=== PATIENT | male | born 1995 | race Caucasian/White ===

== ENCOUNTER 2020-09-11 15:13 | Emergency (ER) | payer OTHER ==
[~2020-09-11 15:13] MED LIST: AUGMENTIN 875-1 EACH PO; COUMADIN 10MG T10 MG PO; ELIQUIS 5 MG TAB5 MG PO; ELIQUIS2.5 MG PO; ENOXAPARIN100 MG/1 M SC; KEFLEX CAP 500500 MG PO; LORTAB 7.5-3251 EACH PO; PROVENTIL HFA6.7 GM INH; XARELTO20 MG PO; ZITHROMAX250 MG PO
[2020-09-11 17:23] LABS: HEMOGLOBIN 15.8 gm/dl (14.0-17.5); RED BLOOD COUNT 5.44 M/UL (4.20-5.50); WHITE BLOOD COUNT 9.6 K/UL (4.5-11.0)
[2020-09-11 17:54] LABS: BUN/CREATININE RATIO 15 (0-10)
== END 2020-09-11 18:25 | disposition home or self-care (01) ==
LOC: ER1 15:13
PROVIDERS: Physician Assistant
DX: R07.89 Other chest pain (principal); R53.83 Other fatigue; Z86.711 Personal history of pulmonary embolism; Z86.718 Personal history of other venous thrombosis and embolism; Z79.01 Long term (current) use of anticoagulants; Z20.822 Contact with and (suspected) exposure to COVID-19
CPT/HCPCS: 71045; 80053; 82550; 82553; 83874; 84484; 85025; 85610; 93005; 99285; U0002

== ENCOUNTER 2021-05-07 15:40 | Emergency (ER) | payer OTHER ==
[~2021-05-07] VITALS: Ht 180.3 cm; Wt 181.4 kg
== END 2021-05-07 22:20 | disposition home or self-care (01) ==
LOC: ER1 15:40
DX: Z23 Encounter for immunization (principal); U07.1 COVID-19; R04.0 Epistaxis; E66.01 Morbid (severe) obesity due to excess calories; Z86.711 Personal history of pulmonary embolism; Z79.01 Long term (current) use of anticoagulants
CPT/HCPCS: 85610; 85730; 99285; M0243; Q9967